=== PATIENT | female | born 1995 ===

== ENCOUNTER 2024-08-20 12:11 | Inpatient (IN) ==
[2024-08-20] MEDS ORDERED: OXYTOCIN 30 UNITS/NSS 30 UNITS/500 ML BAG IV PRN ×2 (12:14→20:00)
[2024-08-20] MEDS ORDERED: LIDOCAINE 1% LOCAL 20 ML VIAL INFIL PRN (12:14)
[2024-08-20] MEDS ORDERED: ACETAMINOPHEN 500 MG TAB PO PRN (12:14)
[2024-08-20] MEDS ORDERED: CALCIUM CARBONATE 500 MG CHEWABLE TAB PO PRN (12:14)
[2024-08-20] MEDS: LACTATED RINGER'S 1,000 ML IV PRN (13:00)
[2024-08-20] MEDS: PENICILLIN GK 6 MU in DEXTROSE 5% 250 ML IV STA (13:00)
[2024-08-20 13:20] LABS: Hemoglobin 12.3 g/dl (12.0-16.0); Mean Corpuscular Hemoglobin 27.7 pg (25.0-34.0); Mean Corpuscular Hgb Conc 33.2 g/dL (32.0-36.0); Mean Corpuscular Volume 83.3 fL (80.0-100.0); Mean Platelet Volume 9.8 fL (9.4-12.4); Platelet Count 230 K/uL (130-400); RDW Coefficient of Variation 14.7 % (11.5-14.5); RDW Standard Deviation 44.4 fL (36.4-46.3); Red Blood Count 4.44 M/uL (4.20-5.40); White Blood Count 11.86 K/ul (4.8-10.8)
--- NOTE | 2024-08-20 14:46 | History & Physical Report ---
Date of Service August 20, 2024 Assessment & Plan (1) Group B streptococcal infection during : Plan: 28-year-old P3 currently at 39 weeks 0 days gestational age presents for elective induction of labor/trial of labor after . Risks of a have been previously reviewed patient is aware of risk of uterine rupture. consent form reviewed and signed. Reviewed induction options with patient. She is GBS positive. She is declining Pitocin and discussed only other option would be rupture of membranes but we would need to await completion of penicillin before rupture would be possible. 1. Fetus: Category 1 tracing 2. GBS positive will start penicillin 3. Labor: Declining Pitocin. Discussed our only option would be awaiting completion of penicillin and then could plan for rupture. Discussed that we may ultimately need to Pitocin to achieve delivery. 4.A1 GDM: Plan for initial blood glucose and if normal will discontinue monitoring as patient has been well-controlled throughout . EFW 65% (2) Gestational diabetes mellitus (GDM) affecting , antepartum: (3) Previous delivery affecting , antepartum: (4) Term : Admission and Anticipated Discharge Date Admission Date: August 20, 2024 History of Present Illness Primary Care Provider: Lorna Francois MD Laura is a 28-year-old P3 at 39 weeks 0 days gestational age presents for trial of labor after section. Has a history of 1 prior with 2 subsequent 's. Cervix very favorable already in clinic last week and was noted to be 3 to 4 cm dilated. 2015, 2 successful Patient wanting IOL; aware of limitations-scheduled 08/20/[address] Mccall Preeclampsia with 1st -taking baby asa daily POTS Syndrome-propranolol daily - Growth US q4 weeks GDM based on elevated 1hr GTT, declining 2hr GTT. *Begin monthly Growth US's @24wks GBS Positive *Treat in Labor OB Labs: Hgb 11.5 g/dl (12.0-16.0) L 06/05/24 Hct 34.1 % (37.0-47.0) L 06/05/24 Glucose 1 Hr 50 gm 139 mg/dl (70-130) H 06/05/24 OB Optional Labs: No Data to Display Labs Reviewed: Initial OB Labs 02/12/24 Blood Type & RH O positive Antibody Screen negative HCT/HGB 39.1/13.2 Platelets 186 Hep C IgG 13yrs+ Old negative Pap Test Chlamydia Gonorrhea Rubella positive RPR non-reactive Urine Culture/Screen no significant growth HBsAg negative HIV negative MCV 88.7 Ultrasound Genetic OB Labs CF SMA Panorama QNatal negative 03/01/24 Quad Screen MASFP Nuchal Translucency Allergies Allergy/AdvReac Type Severity Reaction Status Date / Time latex Allergy Intermediate Rash Verified 08/20/24 12:33 Home Medications Medication Instructions Recorded Confirmed Type aspirin [Baby Aspirin] 1 tab PO DAILY 06/03/24 08/20/24 History escitalopram oxalate [Lexapro] 2 tab PO DAILY 06/03/24 08/20/24 History omeprazole 1 tab PO DAILY 06/03/24 08/20/24 History 21-iron fu-folic acid 1 tab PO DAILY 06/03/24 08/20/24 History [ Complete] propranolol 1 tab PO TID 06/03/24 08/20/24 History acetone (urine) test (Ketone Urine #50 ea 07/02/24 08/13/24 Rx Test strips) blood sugar diagnostic (OneTouch #150 ea 07/02/24 08/13/24 Rx Verio test strips) blood-glucose meter (OneTouch #1 ea 07/02/24 08/13/24 Rx Verio Reflect Meter) lancets 33 gauge (OneTouch Delica #150 ea 07/02/24 08/13/24 Rx Plus Lancet) buspirone 10 mg tablet 10 mg PO TID PRN Anxiety 08/20/24 08/20/24 History calcium carbonate 500 mg PO TID PRN Heartburn 08/20/24 08/20/24 History Patient History Medical History (Updated 08/20/24 @ 14:43 by Adrien Mccall MD) Term Status post elective PTSD (post-traumatic stress disorder) Varicella vaccination Depression with anxiety Surgical History S/P cholecystectomy S/P section Family History Denies family history of Ovarian cancer Breast cancer Colorectal cancer Social History Smoking Status: Former smoker Do You Dip or Chew Tobacco: No; Hx Alcohol Use: No Hx Substance Use: Yes Last Used Substance: Hours (ago) Last Used Substance Other:: Patient used medical marijuana and used it last night (08/19/2024) Preferred Language: Khmer Communication Ability: Effective Chief Radiology Required: No Beliefs That Will Affect Care: None marital status: marital status details: Avery Lehman (29) [phone] Current Living Situation: Spouse and Family Current Living Situation Comment: Patient lives with spouse, 3 children, cat- spouse changing litter current occupational status: unemployed current occupation: homemaker Feels Safe at Home: Yes Safety Concerns: Feels Safe At This Time Physical Exam Genitourinary: Manual OB Exam: + cervical dilation (4-5), + cervical effacement, + station and + amniotic fluid OB Exam Monitor Tracing: + external FHT monitor used, + external uterine monitor used, + category I and + normal FHT variability; no early decelerations present, no late decelerations present and no variable decelerations Results & Data Vital Signs (Past 12 Hours) Vital Signs Temp Pulse Resp BP 08/20/24 12:50 37.3 C 89 20 111/73 08/20/24 12:22 89 111/73 08/20/24 12:21 18 08/20/24 12:21 37.3 C 18 Coding Level of Care Code None Diagnoses Group B streptococcal infection during O98.819; B95.1 Gestational diabetes mellitus (GDM) affecting , antepartum O24.419 Previous delivery affecting , antepartum O34.219 Term Z34.90
[2024-08-20] MEDS: OXYTOCIN 30 UNITS/NSS 30 UNITS/500 ML BAG IV PRN (15:30)
[2024-08-20] MEDS: PENICILLIN GK 3 MU in DEXTROSE 5% 100 ML IV PRN (16:40)
[2024-08-20] MEDS ORDERED: BUPIVACAINE 0.25% PF 30 ML VIAL EPI PRN (18:43)
[2024-08-20] MEDS ORDERED: ROPIVACAINE 0.5% PF 5 MG/ML 20 ML VIAL EPI PRN (18:43)
[2024-08-20] MEDS ORDERED: NALBUPHINE HCL INJ 10 MG/ML AMP IV PRN (18:43)
[2024-08-20] MEDS ORDERED: NALOXONE HCL 1 MG in SODIUM CHLORIDE 0.9% 1,000 ML IV PRN (18:43)
[2024-08-20] MEDS ORDERED: diphenhydrAMINE 50 MG/ML VIAL IV PRN (18:43)
[2024-08-20] MEDS ORDERED: SODIUM CHLORIDE 0.9% PF INJ 10 ML VIAL EPI PRN (18:43)
[2024-08-20] MEDS ORDERED: fentaNYL citrate PF 100 MCG/2 ML VIAL EPI PRN (18:43)
[2024-08-20] MEDS ORDERED: ePHEDrine sulfate 50 MG/ML AMP IV PRN (18:43)
[2024-08-20] MEDS ORDERED: NALOXONE HCL 0.4 MG/1 ML VIAL/CARP IV PRN (18:43)
[2024-08-20] MEDS ORDERED: fentANYL 2 MCG/ML BUPIVacaine 0.125%-NSS 100ML BAG EPI PRN (18:43)
[2024-08-20] MEDS ORDERED: LIDOCAINE 2% MPF LOCAL 5 ML VIAL EPI PRN (18:43)
--- NOTE | 2024-08-20 18:43 | Anesthesiology Consultation ---
Date of Service August 20, 2024 Assessment & Plan (1) Encounter for pre-operative examination: Chart Review Chart Review: Patient NOT seen in Pre Admission Testing and Acceptable Risk for Labor Epidural Consults Requested none History Height/Weight Height: 5 ft 5 in Weight: 91.172 kg Allergies Allergy/AdvReac Type Severity Reaction Status Date / Time latex Allergy Intermediate Rash Verified 08/20/24 12:33 Medications Home Medications Medication Instructions Recorded Confirmed Last Taken aspirin [Baby Aspirin] 1 tab PO DAILY 06/03/24 08/20/24 08/18/24 19:00 escitalopram oxalate [Lexapro] 2 tab PO DAILY 06/03/24 08/20/24 08/17/24 19:00 omeprazole 1 tab PO DAILY 06/03/24 08/20/24 08/19/24 07:00 21-iron fu-folic acid 1 tab PO DAILY 06/03/24 08/20/24 08/18/24 19:00 [ Complete] propranolol 1 tab PO TID 06/03/24 08/20/24 Unknown acetone (urine) test (Ketone Urine #50 ea 07/02/24 08/13/24 Unknown Test strips) blood sugar diagnostic (OneTouch #150 ea 07/02/24 08/13/24 Unknown Verio test strips) blood-glucose meter (OneTouch #1 ea 07/02/24 08/13/24 Unknown Verio Reflect Meter) lancets 33 gauge (OneTouch Delica #150 ea 07/02/24 08/13/24 Unknown Plus Lancet) buspirone 10 mg tablet 10 mg PO TID PRN Anxiety 08/20/24 08/20/24 08/20/24 10:00 calcium carbonate 500 mg PO TID PRN Heartburn 08/20/24 08/20/24 08/18/24 19:00 Active Medications Generic Name Dose Route Start Last Admin Trade Name Freq PRN Reason Stop Dose Admin Lactated Ringer's 1,000 mls @ 125 mls/hr 08/20/24 12:14 08/20/24 13:00 Lr IV 08/22/24 12:13 125 mls/hr .Q8H PRN Administration L&D Protocol Protocol Penicillin G Potassium 3 mu/ 106 mls @ 100 mls/hr 08/20/24 15:14 08/20/24 16:40 Dextrose IV 08/30/24 15:13 100 mls/hr Q4H PRN Administration GBS(+) Until Delivery Oxytocin 30 units in 500 mls @ 10 mls/hr 08/20/24 12:18 08/20/24 18:15 Pitocin 30 Units/Nss IV 08/22/24 12:17 0.6 units/hr .Q24H PRN 10 mls/hr Labor Induction/Augmentation Titration Protocol 0.6 UNITS/HR Past Medical History Medical History Term Status post elective PTSD (post-traumatic stress disorder) Varicella vaccination Depression with anxiety Past Family History Family History Denies family history of Ovarian cancer Breast cancer Colorectal cancer Past Surgical History Surgical History S/P cholecystectomy S/P section Social History Smoking Status: Former smoker Do You Dip or Chew Tobacco: No Hx Alcohol Use: No Hx Substance Use: Yes substance use type: marijuana Last Used Substance: Hours (ago) Last Used Substance Other:: Patient used medical marijuana and used it last night (08/19/2024) Physical Exam Vital Signs Last Vital Signs Temp 98.4 F 08/20/24 18:12 Pulse 55 L 08/20/24 18:12 Resp 18 08/20/24 18:12 BP 130/82 08/20/24 18:12 Testing Laboratory Results 08/20/24 12:48 Blood Type O Positive 08/20/24 12:48 Antibody Screen NEGATIVE 08/20/24 12:48
[2024-08-20] MEDS: fentaNYL citrate PF 100 MCG/2 ML VIAL ONE (19:15)
[2024-08-20] MEDS: LIDOCAINE 2%/EPINEPHRINE 1:200,000 20 ML PF ONE (19:15)
[2024-08-20] MEDS: SODIUM CHLORIDE 0.9% PF INJ 10 ML VIAL ONE (19:15)
[2024-08-20] MEDS: BUPIVACAINE 0.25% PF 30 ML VIAL ONE (19:15)
[2024-08-20] MEDS: fentANYL 2 MCG/ML BUPIVacaine 0.125%-NSS 100ML BAG ONE (19:20)
[2024-08-20] MEDS ORDERED: HYDROCORTISONE ACETATE 25 MG SUPP PR PRN (20:00)
[2024-08-20] MEDS ORDERED: DIPHTHER/TETAN/PERTUS Vaccine (Tdap, Adol/Adult) 0.5mL IM ONE (20:00)
[2024-08-20] MEDS ORDERED: ACETAMINOPHEN 325 MG TAB PO PRN (20:00)
[2024-08-20] MEDS ORDERED: BENZOCAINE 20% SPRY 85 APPLN/85 GM CAN EXT PRN (20:00)
[2024-08-20] MEDS: ESCITALOPRAM OXALATE 20 MG TAB PO SCH (20:07)
[2024-08-20] MEDS: BUPIVACAINE 0.25% PF 30 ML VIAL EPI STA (20:16)
[2024-08-20] MEDS: ePHEDrine sulfate 50 MG/ML AMP ONE (20:16)
[2024-08-20] MEDS: fentaNYL citrate PF 100 MCG/2 ML VIAL EPI STA (20:16)
[2024-08-20] MEDS: LIDOCAINE 2%/EPINEPHRINE 1:200,000 20 ML PF EPI STA (20:17)
[2024-08-20] MEDS: SODIUM CHLORIDE 0.9% PF INJ 10 ML VIAL EPI STA (20:17)
--- NOTE | 2024-08-20 20:22 | Anesthesia Procedure Note ---
Date of Service August 20, 2024 Anesthesia Post Epidural Note Vital Signs Vital Signs: Temp Pulse Resp BP Pulse Ox 98.4 F 56 L 18 138/65 95 08/20/24 18:12 08/20/24 20:16 08/20/24 18:12 08/20/24 20:10 08/20/24 20:16 Notes Mental Status: alert / awake / arousable and participated in evaluation Nausea / Vomiting: adequately controlled Pain: adequately controlled Airway Patency, RR, SpO2: stable & adequate BP & HR: stable & adequate Hydration State: stable & adequate Neuraxial Anesthesia: was administered and sensory block is resolving Anesthetic Complications: no major complications apparent and Pt Satisfied with anesthetic care Epidural: Removed without complications and With tip intact
[2024-08-20] MEDS: DOCUSATE SODIUM 100 MG CAP PO SCH (22:45)
[2024-08-21] MEDS: busPIRone 5 MG TAB PO PRN (02:26)
[2024-08-21] MEDS: IBUPROFEN 600 MG TAB PO PRN (02:35)
--- NOTE | 2024-08-21 07:52 | Obstetrical Progress Note ---
Date of Service August 21, 2024 Assessment & Plan (1) (vaginal after ): Plan: 12 hour post following at 39 weeks POG. GBS +ve: received PCN in labor. -Vitals:Pulse : 50s -60s( not symptomatic) BP 130s now was in 150s few episodes yesterday. Given previous h/o Preeclampsia; monitor BP closely No premonitory signs ? Psy consultation - Case management involvement in care is recommended. - 24 hrs will be completed tonight. Admission and Anticipated Discharge Date Admission Date: August 20, 2024 Supervising Physician Co-Signing Physician Notes Resident Physician Supervision Note: I interviewed and examined the patient. Discussed with Dr. Garcia and agree with findings and plan as documented in the note. Any exceptions or clarifications are listed here: [None] Documented By: Kaylan Cueto MD, FACOG Subjective 1st PPD following with Prev and 2 Doing well overall. She seems emotionally unstable; is not happy with her daughter being admitted in nursery and wants to take her home. She is tearful and sad. Shared some family issues and challenges. GBS +ve: received PCN Baby in nursery due to hypoglycemia. Vitals: Stable ( 130-155/ 65-92) No breast issues Lochia: Moderate Review of Systems Review of Systems: As per HPI Physical Exam Physical Exam: General: Alert and oriented. No acute distress. CV: Regular rate and rhythm. No murmurs. Respiratory: CTA bilaterally. No rhonchi, wheezes, or crackles. No increased work of breathing. Abdomen: Positive bowel sounds. Soft, nontender, non distended. Uterus: Fundus firm and palpable suprapubic. Well contracted, Non tender. Lower extremities: No LE edema. No deep calf pain. Results & Data Vital Signs (Past 12 Hours) Vital Signs Temp Pulse Pulse Resp BP BP BP 08/21/24 03:45 36.3 C L 60 18 132/84 08/20/24 23:05 36.9 C 60 18 135/86 08/20/24 21:51 60 08/20/24 21:51 130/60 08/20/24 21:48 60 08/20/24 21:48 145/67 H 08/20/24 21:46 08/20/24 21:46 55 L 08/20/24 21:46 08/20/24 21:46 58 L 08/20/24 21:41 08/20/24 21:41 62 08/20/24 21:40 08/20/24 21:40 64 08/20/24 21:36 08/20/24 21:36 61 08/20/24 21:34 08/20/24 21:34 60 08/20/24 21:31 08/20/24 21:31 61 08/20/24 21:26 08/20/24 21:26 55 L 08/20/24 21:25 08/20/24 21:25 56 L 08/20/24 21:21 08/20/24 21:21 57 L 08/20/24 21:19 56 L 08/20/24 21:19 119/60 08/20/24 21:16 08/20/24 21:16 57 L 08/20/24 21:11 08/20/24 21:11 54 L 08/20/24 21:06 08/20/24 21:06 59 L 08/20/24 21:02 08/20/24 21:02 64 08/20/24 21:01 08/20/24 21:01 51 L 08/20/24 20:56 08/20/24 20:56 63 08/20/24 20:56 08/20/24 20:56 71 08/20/24 20:51 08/20/24 20:51 57 L 08/20/24 20:51 08/20/24 20:51 78 08/20/24 20:46 08/20/24 20:46 51 L 08/20/24 20:41 08/20/24 20:41 54 L 08/20/24 20:40 55 L 08/20/24 20:40 127/59 L 08/20/24 20:36 08/20/24 20:36 68 08/20/24 20:35 08/20/24 20:35 53 L 08/20/24 20:31 08/20/24 20:31 55 L 08/20/24 20:26 08/20/24 20:26 55 L 08/20/24 20:25 49 L 08/20/24 20:25 135/76 08/20/24 20:21 08/20/24 20:21 53 L 08/20/24 20:16 08/20/24 20:16 56 L 08/20/24 20:11 08/20/24 20:11 58 L 08/20/24 20:10 56 L 08/20/24 20:10 138/65 08/20/24 20:06 08/20/24 20:06 57 L 08/20/24 20:01 08/20/24 20:01 66 08/20/24 19:59 08/20/24 19:59 71 08/20/24 19:57 65 08/20/24 19:57 138/91 08/20/24 19:56 08/20/24 19:56 59 L 08/20/24 19:51 08/20/24 19:51 64 08/20/24 19:46 08/20/24 19:46 62 Pulse Ox O2 Del Method 08/21/24 03:45 97 Room Air 08/20/24 23:05 98 Room Air 08/20/24 21:51 08/20/24 21:51 08/20/24 21:48 08/20/24 21:48 08/20/24 21:46 96 08/20/24 21:46 08/20/24 21:46 94 08/20/24 21:46 08/20/24 21:41 95 08/20/24 21:41 08/20/24 21:40 94 08/20/24 21:40 08/20/24 21:36 95 08/20/24 21:36 08/20/24 21:34 93 08/20/24 21:34 08/20/24 21:31 95 08/20/24 21:31 08/20/24 21:26 95 08/20/24 21:26 08/20/24 21:25 94 08/20/24 21:25 08/20/24 21:21 95 08/20/24 21:21 08/20/24 21:19 08/20/24 21:19 08/20/24 21:16 95 08/20/24 21:16 08/20/24 21:11 96 08/20/24 21:11 08/20/24 21:06 94 08/20/24 21:06 08/20/24 21:02 94 08/20/24 21:02 08/20/24 21:01 94 08/20/24 21:01 08/20/24 20:56 95 08/20/24 20:56 08/20/24 20:56 94 08/20/24 20:56 08/20/24 20:51 94 08/20/24 20:51 08/20/24 20:51 94 08/20/24 20:51 08/20/24 20:46 95 08/20/24 20:46 08/20/24 20:41 95 08/20/24 20:41 08/20/24 20:40 08/20/24 20:40 08/20/24 20:36 95 08/20/24 20:36 08/20/24 20:35 94 08/20/24 20:35 08/20/24 20:31 95 08/20/24 20:31 08/20/24 20:26 95 08/20/24 20:26 08/20/24 20:25 08/20/24 20:25 08/20/24 20:21 95 08/20/24 20:21 08/20/24 20:16 95 08/20/24 20:16 08/20/24 20:11 96 08/20/24 20:11 08/20/24 20:10 08/20/24 20:10 08/20/24 20:06 95 08/20/24 20:06 08/20/24 20:01 94 08/20/24 20:01 08/20/24 19:59 94 08/20/24 19:59 08/20/24 19:57 08/20/24 19:57 08/20/24 19:56 95 08/20/24 19:56 08/20/24 19:51 96 08/20/24 19:51 08/20/24 19:46 94 08/20/24 19:46
[2024-08-21] MEDS: FERROUS SULFATE 325 MG TAB PO SCH (09:19)
[2024-08-21] MEDS: PRENATAL VITAMIN 1 TAB PO SCH (09:19)
[2024-08-21] MEDS: ONDANSETRON 4 MG OD TAB PO PRN (12:28)
[2024-08-21] MEDS: PROPRANOLOL HCL 20 MG TAB PO SCH (13:03)
[2024-08-21 16:17] VITALS: BP 130/84; PULSE 56; RESP 18; TEMP 98.6; O2SAT 98
[2024-08-21] MEDS ORDERED: bisacodyL 5 MG TABEC PO SCH (20:00)
[2024-08-22] MEDS ORDERED: bisacodyL 10 MG SUPP PR PRN (08:00)
--- NOTE | 2024-08-26 12:27 | Delivery Summary ---
Vaginal Delivery Summary Date of Service August 26, 2024 Vaginal Delivery Summary Progressed to 10 cm dilated, 100% effaced and +2-3 station. Pushed over intact perineum with epidural anesthesia and delivered a viable with weight and Apgars per delivery summary. Had the delivered without difficulty quickly followed by shoulders and body. was noted to be vigorous upon delivery and a 1 minute delayed cord clamping was initiated. Cord was then double clamped and cut. Attention was turned to delivery of placenta was delivered intact three-vessel cord gentle cord traction. Inspection of perineum vagina cervix there is noted to be no lacerations. Sponge and instrument counts are correct at the completion of the case. Both mother and stable immediate postdelivery period. No complications noted and blood loss per QBL and chart [facility] Vaginal Delivery Charge Delivery Type Details:
== END 2024-08-21 17:35 | disposition home or self-care (01) | DRG 807 ==
LOC: 4S1 12:11 → 4E2 22:05